=== PATIENT | female | born 1940 | race Caucasian/White ===

== ENCOUNTER 2016-03-21 09:08 | Emergency (ER) | payer MEDICARE ==
[~2016-03-21] VITALS: Ht 175.3 cm; Wt 66.0 kg
[~2016-03-21 09:08] MED LIST: IBUP-1116 PO; LISI-590 PO
[2016-03-21 09:09] VITALS: BP 175/75; PULSE 98; RESP 18; TEMP 97.7; O2SAT 97
[2016-03-21] MEDS ORDERED: LISI10TA3 PO (11:56)
[2016-03-21] MEDS ORDERED: MULTCAP (11:56)
[2016-03-21] MEDS ORDERED: FERR1TAB36 PO (11:56)
[2016-03-21] MEDS ORDERED: SODIUM CHLORIDE 0.9% FLUSH 5 ML FLUSH IVF PRN (12:30)
[2016-03-21] MEDS ORDERED: ONDANSETRON HCL 4 MG/2 ML VIAL IVP ONE (12:30)
--- NOTE | 2016-03-21 12:32 | PD ---
HPI Chief Complaint: Abdominal Pain Time Seen by Provider: 12:18 Travel History International Travel<30 days: No Contact w/Intl Traveler<30days: No Traveled to known affect area: No History of Present Illness HPI This patient complains of abdominal pain. Location is right lower quadrant. Duration is 2 days. Severity is moderate. She episode of diarrhea today, has not had any vomiting or fever. Symptoms have no alleviating factors. She has had bilateral oophorectomy but appendix is in place. PFSH Past Medical History Anemia: Yes Autoimmune Disease: No Blood Disorders: No Cancer: No Cardiovascular Problems: Yes Diabetes: No Endocrine: No Genitourinary: Yes Hepatitis: No Hiatal Hernia: No Hypertension: Yes Immune Disorder: No Implanted Vascular Access Dvce: No Kidney Stones: Yes Medical other: Yes (KIDNEY STONES, SINUS DRAINAGE) Musculoskeletal: No Neurologic: Yes Psychiatric: No Reproductive: No Respiratory: Yes Migraines: Yes Thyroid Disease: Yes (NODULE) ?: Not Menopausal: Yes Past Surgical History Abdominal Surgery: Yes Genitourinary Surgery: Yes (CYSTO-KIDNEY STONE EXTRACTION) Gynecologic Surgery: Yes (BILATERAL OVARIAN CYSTECTOMY) Pacemaker: No Thoracic Surgery: Yes (LUMPS IN RT BREAST REMOVED) Other Surgery: Yes Social History Alcohol Use: No Tobacco Use: Yes (1/2 PPD) Substance Use: No Allergies-Medications (Allergen,Severity, Reaction): Coded Allergies: Codeine (Verified Allergy, Mild, HIVES-PT INDICATES THAT SHE CAN TAKE LORTAB, 08/19/15) Contrast Media (Verified Allergy, Mild, 08/19/15) Iodine (Verified Allergy, Mild, RASH, 08/19/15) Sulfa (Verified Allergy, Mild, UNKNONW, 08/19/15) Tetracycline (Verified Allergy, Mild, 08/19/15) Tetracyclines (Verified Allergy, Mild, UNKNOWN, 08/19/15) Iohexol (OMNIPAQUE) (Unverified Allergy, Unknown, HIVES/NEEDS TO BE PREMEDICATED, 08/19/15) Dust (Unverified Adverse Reaction, Severe, 08/19/15) SINUS PROBLEMS Cipro (Verified Adverse Reaction, Mild, HEADACHE, 08/19/15) Cultivated Oat Pollen (Unverified Adverse Reaction, Unknown, 08/19/15) SINUS PROBLEMS, DRAINAGE Uncoded Allergies: METALS (Adverse Reaction, Unknown, 08/19/15) BLISTERS WITH NICKEL Reported Meds & Prescriptions Reported Meds & Active Scripts Active Reported Multi For Her (Multiple Vitamins W/ Minerals) 1 Cap Cap Iron (Ferrous Sulfate) 325 Mg Tab 325 Mg PO BIDPC Take after a meal. Lisinopril 10 Mg Tab 10 Mg PO DAILY Review of Systems General / Constitutional: No: Fever Eyes: No: Visual changes HENT: No: Headaches Cardiovascular: No: Chest Pain or Discomfort Respiratory: No: Shortness of Breath Gastrointestinal: Positive: Diarrhea, Abdominal Pain Genitourinary: No: Dysuria Musculoskeletal: No: Pain Skin: No Rash Neurologic: No: Weakness Psychiatric: No: Depression Endocrine: No: Polydipsia Hematologic/Lymphatic: No: Easy Bruising Physical Exam Narrative GENERAL: Well-nourished, well-developed patient with some abdominal discomfort SKIN: Warm and dry. HEAD: Atraumatic. Normocephalic. EYES: Pupils equal and round. No scleral icterus. No injection or drainage. ENT: No nasal bleeding or discharge. Mucous membranes pink and moist. NECK: Trachea midline. No JVD. CARDIOVASCULAR: Regular rate and rhythm. No murmur appreciated. RESPIRATORY: No accessory muscle use. Clear to auscultation. Breath sounds equal bilaterally. GASTROINTESTINAL: Abdomen soft, non-tender, nondistended. Hepatic and splenic margins not palpable. MUSCULOSKELETAL: No obvious deformities. No clubbing. No cyanosis. No edema. NEUROLOGICAL: Awake and alert. No obvious cranial nerve deficits. Motor grossly within normal limits. Normal speech. PSYCHIATRIC: Appropriate mood and affect; insight and judgment normal. Data Data Last Documented VS Vital Signs Date Time Temp Pulse Resp B/P Pulse Ox O2 Delivery O2 Flow Rate FiO2 03/21/16 09:09 97.7 98 18 175/75 97 Room Air Orders Basic Metabolic Panel (Bmp) (03/21/16 12:23) Complete Blood Count With Diff (03/21/16 12:23) Prothrombin Time / Inr (Pt) (03/21/16 12:23) Act Partial Throm Time (Ptt) (03/21/16 12:23) Urinalysis - C+S If Indicated (03/21/16 12:23) Iv Access Insert/Monitor (03/21/16 12:23) NPO (03/21/16 12:23) Ondansetron Inj (Zofran Inj) (03/21/16 12:30) Sodium Chloride 0.9% Flush (Ns Flush) (03/21/16 12:30) Ct Abd/Pel W/O Iv Contrast (03/21/16 ) Labs Laboratory Tests Test 03/21/16 12:35 White Blood Count 5.8 TH/MM3 Red Blood Count 5.82 MIL/MM3 Hemoglobin 14.7 GM/DL Hematocrit 45.3 % Mean Corpuscular Volume 77.8 FL Mean Corpuscular Hemoglobin 25.3 PG Mean Corpuscular Hemoglobin 32.5 % Concent Red Cell Distribution Width 22.9 % Platelet Count 182 TH/MM3 Mean Platelet Volume 8.5 FL Neutrophils (%) (Auto) 65.2 % Lymphocytes (%) (Auto) 21.5 % Monocytes (%) (Auto) 10.7 % Eosinophils (%) (Auto) 2.2 % Basophils (%) (Auto) 0.4 % Neutrophils # (Auto) 3.8 TH/MM3 Lymphocytes # (Auto) 1.2 TH/MM3 Monocytes # (Auto) 0.6 TH/MM3 Eosinophils # (Auto) 0.1 TH/MM3 Basophils # (Auto) 0.0 TH/MM3 CBC Comment AUTO DIFF Differential Comment AUTO DIFF CONFIRMED Platelet Estimate NORMAL Platelet Morphology Comment NORMAL Ovalocytes 1+ Keratocytes OCC Prothrombin Time 10.9 SEC Prothromb Time International 1.0 RATIO Ratio Activated Partial 25.2 SEC Thromboplast Time Urine Color LIGHT-YELLOW Urine Turbidity CLEAR Urine pH 5.5 Urine Specific [place] 1.004 Urine Protein NEG mg/dL Urine Glucose (UA) NEG mg/dL Urine Ketones NEG mg/dL Urine Occult Blood TRACE Urine Nitrite NEG Urine Bilirubin NEG Urine Urobilinogen LESS THAN 2.0 MG/DL Urine Leukocyte Esterase NEG Urine RBC 1 /hpf Urine WBC 1 /hpf Urine Squamous Epithelial 1 /hpf Cells Microscopic Urinalysis Comment CULT NOT INDICATED Sodium Level 135 MEQ/L Potassium Level 4.9 MEQ/L Chloride Level 105 MEQ/L Carbon Dioxide Level 24.6 MEQ/L Anion Gap 5 MEQ/L Blood Urea Nitrogen 11 MG/DL Creatinine 0.81 MG/DL Estimat Glomerular Filtration 69 ML/MIN Rate Random Glucose 90 MG/DL Calcium Level 8.0 MG/DL [facility] Medical Decision Making Medical Screen Exam Complete: Yes Emergency Medical Condition: Yes Medical Record Reviewed: Yes Differential Diagnosis Appendicitis, colitis, ileus Narrative Course I have reviewed the patient's electronic medical record. Patient has extensive allergy list including allergy to contrast media so I have ordered CT without contrast I have concern for appendicitis CBC is normal Metabolic profile is normal Coagulation studies are normal Urinalysis is clean I offered patient pain medicine but she declines. On recheck she is resting comfortably and feels better CT scan is normal and her appendix looks normal Stable for outpatient follow-up Diagnosis Primary Impression: Abdominal pain Qualified Code: R10.31 - Right lower quadrant abdominal pain Additional Instructions: The patient was advised to follow up with their physician and return if they worsen. Med/Other Pt SpecificInfo: Other Disposition: DISCHARGE HOME Condition: Stable Siva Quiroz MD Mar 21, 2016 12:32
[2016-03-21 12:51] LABS: AUTOMATED NEUTROPHIL # 3.8 TH/MM3 (1.8-7.7); BASOPHIL % 0.4 % (0.0-2.0); EOSINOPHIL # 0.1 TH/MM3 (0-0.4); EOSINOPHIL % 2.2 % (0.0-4.0); HEMATOCRIT 45.3 % (35.0-46.0); LYMPH % 21.5 % (9.0-44.0); LYMPHOCYTE # 1.2 TH/MM3 (1.0-4.8); MEAN CELL VOLUME 77.8 FL (80.0-100.0); MEAN CORPUSCULAR HEMOGLOBIN 25.3 PG (27.0-34.0); MEAN CORPUSCULAR HGB CONC 32.5 % (32.0-36.0); MONO % 10.7 % (0.0-8.0); NEUT % 65.2 % (16.0-70.0); PLATELET COUNT 182 TH/MM3 (150-450); RED BLOOD COUNT 5.82 MIL/MM3 (4.00-5.30); RED CELL DISTRIBUTION WIDTH 22.9 % (11.6-17.2); WHITE BLOOD COUNT 5.8 TH/MM3 (4.0-11.0)
[2016-03-21 12:54] LABS: HEMO FLAGS AUTO DIFF
[2016-03-21 12:55] LABS: BLOOD, URINE TRACE (NEG); GLUCOSE,URINE NEG (NEG); KETONE, URINE NEG (NEG); NITRITE,URINE NEG (NEG); PH, URINE 5.5 (5.0-8.5); SQUAMOUS EPITHELIAL CELL URINE 1 /hpf (0-5); URINE COLOR LIGHT-YELLOW (YELLW/STRAW)
[2016-03-21 12:56] LABS: COMMENT (UR) CULT NOT INDICATED; CULTURE IF INDICATED CULT NOT INDICATED
[2016-03-21 13:13] LABS: BICARBONATE 24.6 MEQ/L (21.0-32.0)
[2016-03-21 13:14] LABS: POTASSIUM 4.9 MEQ/L (3.5-5.1)
--- NOTE | 2016-03-21 13:22 | RADRPT ---
EXAM DATE/TIME: 03/21/2016 13:00 [facility] COMPARISON: No previous studies available for comparison. INDICATIONS : Right lower quadrant pain for 4 days, diarrhea for 2 days ORAL CONTRAST: No oral contrast ingested. RADIATION DOSE: 5.74 CTDIvol (mGy) MEDICAL HISTORY : Hypertension. SURGICAL HISTORY : None. ENCOUNTER: Initial ACUITY: 4 - 6 days PAIN SCALE: 5/10 LOCATION: Right lower quadrant TECHNIQUE: Volumetric scanning of the abdomen and pelvis was performed. Using automated exposure control and ad justment of the mA and/or kV according to patient size, radiation dose was kept as low as reasonably achievable to obtain optimal diagnostic quality images. FINDINGS: LOWER LUNGS: Posterior bibasilar fibrotic scarring and/or atelectasis is noted. LIVER: Mild hepatomegaly is noted. Homogeneous density without lesion. There is no dilation of the biliary tree. No calcified gallstones. SPLEEN: Mild splenomegaly is noted. PANCREAS: Within normal limits. KIDNEYS: Normal in size and shape. There is a 1.5 cm right mid pole cyst. There is a 0.8 cm midpole hyperdens e nodule consistent with possible hyperdense cyst or small solid lesion. Contrast-enhanced examinatio n would be helpful for further evaluation of this indeterminate nodule if clinically indicated. There is no hydronephrosis. ADRENAL GLANDS: Within normal limits. VASCULAR: There is no aortic aneurysm. BOWEL/MESENTERY: The stomach, small bowel, and colon demonstrate no acute abnormality. There is no free intraperitone al air or fluid. The appendix is normal. ABDOMINAL WALL: Within normal limits. RETROPERITONEUM: There is no lymphadenopathy. BLADDER: No wall thickening or mass. REPRODUCTIVE: Within normal limits. INGUINAL: There is no lymphadenopathy or hernia. MUSCULOSKELETAL: Mild degenerative changes and scoliosis of the lumbar spine are noted. CONCLUSION: 1. Mild hepatosplenomegaly. 2. 0.8 cm hyperdense nodule within the midpole of the right kidney which is indeterminate. Contrast-e nhanced MRI or CT of the abdomen would be helpful for further evaluation of this finding if clinicall y indicated. 3. 1.5 cm mid pole right renal cyst. 4. Scattered atelectasis and/or fibrotic scarring within the posterior lung bases. 5. Degenerative changes and scoliosis of the lumbar spine. Todd Ferreira MD on March 21, 2016 at 13:11 Board Certified Radiologist. This report was verified electronically.
[2016-03-21 13:25] LABS: APTT (PATIENT) 25.2 SEC (24.3-30.1); PROTHROMBIN TIME - PATIENT 10.9 SEC (9.8-11.6)
[2016-03-21 13:31] LABS: KERATOCYTES OCC (NORMAL); PLATELET ESTIMATE SMEAR NORMAL (NORMAL); PLATELET MORPHOLOGY NORMAL (NORMAL); SCAN/DIFF AUTO DIFF CONFIRMED
[2016-03-21 13:32] LABS: OVALOCYTES 1+ (NORMAL)
[2016-03-21 14:54] VITALS: BP 147/76
== END 2016-03-21 14:56 | disposition home or self-care (01) ==
LOC: NEPB 09:08
DX: R10.31 Right lower quadrant pain (principal); D64.9 Anemia, unspecified; I10 Essential (primary) hypertension; Z87.442 Personal history of urinary calculi; F17.210 Nicotine dependence, cigarettes, uncomplicated
CPT/HCPCS: 74176; 80048; 81001; 85025; 85610; 85730; 96374; 99284; J2405